=== PATIENT | female | born 1975 | race Caucasian/White ===

== ENCOUNTER 2024-05-29 14:00 | Emergency (ER) | payer BC, SELFPAY ==
[2024-05-29 14:01] VITALS: BMI 33.3
[2024-05-29 14:49] VITALS: BP 126/76; PULSE 63; RESP 16; TEMP 37.1; O2SAT 99
--- NOTE | 2024-05-29 14:51 | XR_ITS ---
Examination: Fingers, right hand fifth digit 3 views Technique: AP, oblique, lateral views right hand fifth digit 3 views. Exam date and time: May 29, 2024 1500 hrs. Indications: Injury to the hand today with fifth digit pain. Findings: No acute fracture No dislocation No foreign body Impression: No acute fracture
--- NOTE | 2024-05-29 14:51 | PD.EDUPEX ---
Upper Extremity Injury RME/HPI General Chief Complaint: Extremity Injury, Upper Stated Complaint: R) 5TH FINGER CAUGHT IN MIXER Time Seen by Provider: 05/29/24 14:14 Arrival date/time: 05/29/24 14:00 48 year old female present to emergency room with c/o of right finger injury today getting caught in a mixer. LOCATION: finger SEVERITY: Symptoms are described as being severe with limitations on activities of daily living QUALITY: Symptoms are described as being dull or achy CONTEXT: accidentally getting finger caught in mixer DURATION/TIMING: The symptoms started approximately today and have been constant this then. ASSOCIATED SYMPTOMS: The patient is unable to identify any other associated symptoms. MODIFYING FACTORS: The patient is unable to identify any alleviating or aggravating symptoms. PERTINENT ROS: no fevers, no headache, no neck or chest pain, no unexplained nausea or vomiting, no focal neurological deficits REVIEW OF SYSTEMS: See History of Present Illness - with the exception of those mentioned in the history of present illness, all other systems reviewed and reported as negative GENERAL: In general the patient is awake, interactive, in an emergency department gurney. HEAD/EYES/EARS/NOSE/THROAT: normo-cephalic, atraumatic, mucus membranes are moist, anicteric, palpebral conjunctiva is pink, trachea is midline. NEUROLOGICAL: cranio-facial features are symmetric, moves all four extremities equally without obvious limitations or weakness. EXTREMITY: right hand pinky finger swan neck deformity noted. no tenderness to palpation over the long bones or large joints of the bilateral lower extremities, no joint swelling, no joint erythema, no signs of trauma, no unilateral leg swelling and no peripheral edema. SKIN: warm, dry, well-perfused, no jaundice, no rash, no telangiectasias or petechia. PSYCH: calm, cooperative, no evidence of psychosis or agitation Related Data Previous Rx's ?Medication ?Instructions ?Recorded celecoxib 200 mg capsule (Celebrex) 200 mg PO BID PRN pain #30 caps 01/07/19 cyclobenzaprine 10 mg tablet 10 mg PO TID PRN muscle spasm #30 01/07/19 tabs acetaminophen 325 mg capsule 975 mg (3 x 325 mg) PO Q6H PRN 11/16/19 pain #30 caps cyclobenzaprine 5 mg tablet 10 mg (2 x 5 mg) PO TID PRN muscle 11/16/19 spasm #30 tabs hydrocodone 5 mg-acetaminophen 325 1 tab PO BID PRN pain #10 tabs 03/05/21 mg tablet ibuprofen 800 mg tablet 800 mg PO TID PRN pain #30 tabs 03/05/21 Allergies Allergy/AdvReac Type Severity Reaction Status Date / Time No Known Allergies Allergy Verified 05/29/24 14:03 Course Course Course Narrative: xray to rule out fx vs strain/sprain vs mallet finger Quality Measures none Orders Category Date Time Status XR finger RT min 2V Stat Exams 05/29/24 14:51 Taken Vital Signs Vital signs: Vital Signs Temperature 98.7 F 05/29/24 14:49 Pulse Rate 63 05/29/24 14:49 Respiratory Rate 16 05/29/24 14:49 Blood Pressure 126/76 05/29/24 14:49 Pulse Oximetry (%) 99 05/29/24 14:49 Oxygen Delivery Method Room Air 05/29/24 14:49 Extremity Injury Patient data External records reviewed:: None Clinical information provided by:: patient Social determinants that could affect healthcare access:: none Patient has the following chronic illnesses:: none How is presenting disease/condition affected by chronic disease/condition?: uneffected by Evaluation data The following diagnostics were reviewed and interpreted by me:: radiology exam(s) Lab and/or radiology exams considered but not ordered:: n/a Interpretation Summary: xray: possible fx finger/mallet finger/ splint placed. Medications / Prescriptions Medications or Prescriptions considered but not ordered:: n/a Medication administrations:: n/a Consultations Consultation(s) initiated? (list below): No Diagnosis Upper Extremity Injury Differential Diagnosis: other (finger fx, mallet finger, strain/sprain ) Most likely diagnosis given after review of the tests above:: mallet finger Admission Indicated Admission indicated?: not indicated Admission Request Was there a request for admission?: No Disposition Plan Disposition Plan: Discharge Discharge Attestation Discharge Attestation: The patient and all family members were given an opportunity to ask questions and understood the discharge instructions. Discharge instructions specifically effects, indications for sooner follow up or return to the emergency department, and the expected course of current diagnosis. Patient condition: Stable Discharge Plan Plan Patient Disposition: HOME (Self Care) Health Concerns: follow up with PCP as directed Return to Ed if symptoms worsen keep splint on 6 weeks and after at time for 4 weeks Prescriptions/Referrals Prescriptions/Med Rec: No Action celecoxib [Celebrex] 200 mg capsule 200 mg PO BID PRN (Reason: pain) Qty: 30 0RF cyclobenzaprine 10 mg tablet 10 mg PO TID PRN (Reason: muscle spasm) Qty: 30 0RF cyclobenzaprine 5 mg tablet 10 mg PO TID PRN (Reason: muscle spasm) Qty: 30 0RF acetaminophen 325 mg capsule 975 mg PO Q6H PRN (Reason: pain) Qty: 30 0RF ibuprofen 800 mg tablet 800 mg PO TID PRN (Reason: pain) Qty: 30 0RF hydrocodone-acetaminophen 5-325 mg tablet 1 tab PO BID MDD 10 PRN (Reason: pain) Qty: 10 0RF Problem List Clinical Impression: Mallet deformity of little finger Patient/Caregiver Discharge Instructions Education Materials: ED Mallet Finger Print Language: Georgian Stand Alone Forms: [facility] Award Info., Patient Portal Info Letter
== END 2024-05-29 16:39 | disposition home or self-care (01) ==
LOC: SERX 16:41
PROVIDERS: Emergency Provider Emergency Medicine; PCP Family Medicine
DX: M20.011 Mallet finger of right finger(s) (principal)
CPT/HCPCS: 73140; 99283

== ENCOUNTER → 2024-06-20 | Outpatient (CLI) | payer BC, SELFPAY ==
--- NOTE | 2024-06-20 14:41 | XR_ITS ---
Examination: Hand, right 3 views Technique: Hand AP, oblique, lateral 3 views Date and time of exam: June 20, 2024 at 1446 hours Comparison May 29, 2024 INDICATIONS: Injury to the hand May 29, 2024 with fifth digit pain FINDINGS: No acute fracture No dislocation No foreign body IMPRESSION: No acute fracture
== END | disposition home or self-care (01) ==
LOC: CDIM 14:27
PROVIDERS: PCP Nurse Practitioner Gerontology; Referring Provider Nurse Practitioner Gerontology; Visit Provider Nurse Practitioner Gerontology
DX: S69.91XA Unspecified injury of right wrist, hand and finger(s), initial encounter (principal); X58.XXXA Exposure to other specified factors, initial encounter
CPT/HCPCS: 73130